=== PATIENT | female | born 1955 | race Caucasian/White ===

== ENCOUNTER → 2016-04-02 | Outpatient (CLI) | payer OTHER ==
--- NOTE | 2016-04-03 09:33 | MA ---
Digital screening mammogram bilateral with tomosynthesis 04/02/2016 10:58 History:Routine screening. Comparison: February 28, 2015, January 04, 2014. Technique: Standard digital cephalocaudal and tomosynthesis mediolateral oblique projections are obt ained. This examination is processed by the [employer] computer-aided detection system. Findings: Breast density: 3 No spiculated masses, malignant type microcalcifications, or mammographic features of malignancy aung ntified. Benign-appearing calcifications are present bilaterally, including a partially calcified posttraumati c oil cyst in the medial left breast. IMPRESSION: Stable benign mammography. BI-RADS 2: Benign Finding. Recommendation: Routine screening mammography in one year. [facility] will send a result letter to the patient. Negative mammography should not preclude additional workup of a clinically suspicious finding. The patient's information is entered into a reminder system with a target due date for her next mammo gram.
== END ==
LOC: FIMAGING 10:57
PROVIDERS: ATTEND Family Medicine
DX: Z12.31 Encounter for screening mammogram for malignant neoplasm of breast (principal)
CPT/HCPCS: G0202

== ENCOUNTER → 2017-06-17 | Outpatient (CLI) | payer OTHER | LOC: FIMAGING 13:44 | PROVIDERS: ATTEND Family Medicine | DX: Z12.31 Encounter for screening mammogram for malignant neoplasm of breast (principal) ==

== ENCOUNTER → 2018-06-18 | Outpatient (CLI) | payer BC | LOC: FIMAGING 10:52 | PROVIDERS: ATTEND Family Medicine | DX: Z12.31 Encounter for screening mammogram for malignant neoplasm of breast (principal); Z80.3 Family history of malignant neoplasm of breast ==